=== PATIENT | female | born 1995 | race Caucasian/White ===

== ENCOUNTER 2020-10-28 16:20 | Emergency (ER) | payer OTHER, SELFPAY ==
[2020-10-28] MEDS ORDERED: Acetaminophen 500 MG TAB ONE (16:54)
[2020-10-28] MEDS ORDERED: Ibuprofen 200 MG TAB ONE (16:54)
== END 2020-10-28 18:25 | disposition home or self-care (01) ==
LOC: CSHERS 16:20
DX: S91.331A Puncture wound without foreign body, right foot, initial encounter (principal); S61.531A Puncture wound without foreign body of right wrist, initial encounter; S61.233A Puncture wound without foreign body of left middle finger without damage to nail, initial encounter; W54.0XXA Bitten by dog, initial encounter